=== PATIENT | female | born 1970 | race Caucasian/White ===

== ENCOUNTER 2019-10-16 14:39 | Outpatient (CLI) | payer OTHER, SELFPAY ==
--- NOTE | 2019-10-16 16:11 | ONC CON_ITS ---
Dr. Barrett New Patient Note Patient: Jennifer Serna Unit #: [id number]: [id number] Dicatated By: Maxim Barrett M.D.Date of Visit: Oct 16, 2019 Onc MED New Patient/Consult Referring Physician: Celeste Irene Chief Complaint: Anemia. History of Present Illness: This is a 48 year-old woman with iron deficiency anemia. She has Rio's thyroiditis, and she also has a history of polymyositis. She has been known to be anemic for at least a couple of years, reportedly due to iron deficiency. However, she had been unable to tolerate oral iron supplements or even a vitamin because they caused stomach problems. She has been seeing Shantelle Koenig for primary care. Her laboratory studies from 10/02/2019 included CBC showing hemoglobin 6.8 g with hematocrit 24.3%. The red cell indices were hypochromic/microcytic with MCV V 66 and MCH 18. The white blood cell count was 3600 and the platelet count was 287,000. Her serum iron studies showed an iron level less than 10 mcg/dL with transferrin saturation 1.1%. The ferritin was low at 3 ng/mL. She has been feeling tired and sluggish. She also gets short of breath with any activity. She is still able to work. Her ECOG score is 1. She has good appetite. She has has her weight has gradually increased. She has not had fever. She does have hot flashes and sweating. Her menstrual periods used to be heavy and clotty, but she did undergo an endometrial ablation about a year and a half ago. Following that procedure they have been less frequent, and they now just come and go. Her recent hormonal levels were in postmenopausal range. She currently has no GI symptoms. She has not been aware of any blood in the stool. She does have joint pain and stiffness, particularly in her hands. She also has been having pain in her right knee. She recently had started taking meloxicam again. She has chronic migraine headaches. She has some tingling in her fingers, which she thinks may be associated with topiramate. Past Medical History: Her medical history includes anxiety, chronic migraine, Rio's thyroiditis with hypothyroidism, and history of polymyositis. Past Surgical History: Her surgical/procedural history includes muscle biopsy of left thigh, hysteroscopy in 2016, hemorrhoidectomy in 2013, section in 2003, and appendectomy in 1982. Medications: ALPRAZolam 1 Tablet (of 0.5 mg) Oral b.i.d., Escitalopram Oxalate 1 Tablet (of 10 mg) Oral daily, Estradiol 1 Tablet (of 1 mg) Oral daily, Levothyroxine Sodium 1 Tablet (of 125 mcg) Oral daily, Nystatin 1 tsp (of 305940 Units/mL) Suspension Mouth/throat four times a day, Rizatriptan Benzoate 1 Tablet (of 10 mg) Tablet Dispersable Oral PRN, Topiramate (50 mg) Tablet Oral Take as Directed, traMADol HCl 1 Tablet (of 50 mg) Oral q 4 hours PRN, Venlafaxine HCl ER 1 Capsule (of 37.5 mg) Capsule SR 24 HR Oral daily, Ventolin HFA 1 - 2 Puff(s) (of 108 (90 base) mcg/act) Aerosol, solution Inhalation four times a day PRN Allergies: No Known Allergies. Social History: Ms. Serna is . She is employed as a [employer]. She is a non-smoker. She does not drink alcohol. Family History: Father of dementia at age 62. Mother with alcoholic cirrhosis at age 51. A sister has had to have iron infusions for anemia. Her paternal grandmother had breast cancer and a paternal uncle had myeloma. Review Of Symptoms: Constitutional - Her energy level has decreased over time. She feel very tired and snugglish. Her appetite is good and weight has gradually trending up these last few months. No fever, chills. She has hot flashes with sweating. ECOG score is 1, Eyes - She has had to start wearing glasses, ENMT - No sinus congestion/drainage. No mouth sores. No sore throat or difficulty swallowing. She has some decrease in her hearing, Endocrine - She has Rio's thyroiditis is and her thyroid function tends to fluctuate, Respiratory - She gets shortness of breath with acitivity. No cough. No pleuritic pain or hemoptysis, Cardiovascular - No angina pain. No palpitations, Gastrointestinal - No nausea or vomiting. No heartburn or acid reflux. No diarrhea or constipation. No blood in the stool or black stools, Genitourinary (F) - No dysuria or hematuria. She has urinary frequency with urgency. No incontinence. She is perimenopausal. Her periods are irregular and less frequent, Musculoskeletal - She is having joint pain and stiffness and back pain. She recently started taking meloxicam, Integumentary - No skin complications, Neurologic - She has migraine headaches. No dizziness. She has had some tingling in her fingers, Psychiatric - She has mild anxiety, for which she takes Xanax occasionally. No depression. She has insomnia. Vital Signs: Performed on Oct 16, 2019 14:49: 0, 30.57 (HIGH), 1.95 sq.m, 66.00 in, 100 %, 101 /min (HIGH), 18 /min, 156/81 mm(hg) (HIGH), 98.0 F (LOW), and 189.4 lbs (HIGH). Physical Examination: Constitutional - She appears to be in good general health, Eyes - Sclerae nonicteric. Conjunctivae clear, ENMT - No lesions noted in the oral cavity, Neck - No mass or thyromegaly, Hematologic/Lymphatic - No cervical, clavicular, or axillary adenopathy, Respiratory - Lungs are clear with good air movement bilaterally, Cardiovascular - Heart rhythm is regular. There is a II/ systolic murmur. There is no gallop or rub noted, Abdomen - Soft and non-tender. Liver and spleen are not enlarged. There is no abdominal mass or ascites noted and there is no inguinal adenopathy, Back/Spine - No spine or CVA tenderness noted, Extremities - No edema. Pedal pulses are palpable bilaterally, Integumentary - No rashes. No suspicious skin lesions noted, Neurologic - No focal neurologic deficits noted. Impression: 1. Patient with iron deficiency anemia. This is most likely due to combination of her previous menstrual blood loss together with some component of inadequate oral iron absorption. 2. She has been intolerant of oral iron preparations. Her other medical illnesses include: 3. Rio's thyroiditis with hypothyroidism. 4. She has a history of polymyositis. 5. She has joint pain and stiffness, which could be inflammatory. 6. Chronic migraine. 7. She has some stress related anxiety. Plan: As she is severely iron deficient and she has been intolerant of oral iron preparations, she will be given parenteral iron replacement with Injectafer, subject to verification of insurance coverage. She will be scheduled for 1-month interval lab studies. She will have further evaluation as indicated depending on her response to the parenteral iron. Signed By: Maxim Barrett M.D. <<Signature on File>>
== END 2019-10-16 14:40 | disposition home or self-care (01) ==
PROVIDERS: Family Provider Nurse Practitioner Family; Referring Provider Nurse Practitioner Family; Visit Provider Internal Medicine Medical Oncology
DX: D50.9 Iron deficiency anemia, unspecified (principal); E06.3 Autoimmune thyroiditis; F41.9 Anxiety disorder, unspecified; G43.709 Chronic migraine without aura, not intractable, without status migrainosus; M25.50 Pain in unspecified joint; Z79.899 Other long term (current) drug therapy; Z79.890 Hormone replacement therapy; Z79.891 Long term (current) use of opiate analgesic
CPT/HCPCS: 99205

== ENCOUNTER 2020-10-04 08:02 | Outpatient (CLI) | payer OTHER, SELFPAY ==
[2020-10-04 08:54] LABS: Basophils # 0.1 10^3/uL (0.0-0.1); Basophils % 1.1 %; Eosinophils # 0.1 10^3/uL (0.0-0.8); Eosinophils % 1.6 %; Hematocrit 24.7 % (37.0-47.0); Lymphocytes # 1.7 10^3/uL (0.8-4.8); Lymphocytes % 27.5 %; Mean Corpuscular HGB Conc 24.3 g/dL (30.0-36.0); Mean Corpuscular Hemoglobin 17.4 pg (28.0-34.0); Mean Corpuscular Volume 71.8 fL (81-99); Mean Platelet Volume 10.8 fL (7.4-10.4); Monocytes # 0.4 10^3/uL (0.2-0.9); Monocytes % 6.3 %; Neutrophils % 63.2 %; Nucleated Red Blood Cells % 0 %; Platelet Count 251 10^3/cmm (130-400); Red Blood Count 3.44 10^6/uL (4.1-5.3); Red Cell Distribution Width 20.6 % (12.1-15.1); White Blood Count 6.2 10^3/uL (4.0-10.0)
[2020-10-04] MEDS: sodium chloride 0.9% 250 ML 75 ML IV (11:20)
[2020-10-04] MEDS: diphenhydrAMINE 25 mg Capsule PO (11:20)
[2020-10-04] MEDS: acetaminophen 325 mg Tablet 650 MG PO (11:20)
[2020-10-04 12:30] VITALS: BP 138/73; PULSE 66; RESP 18; TEMP 37.1; O2SAT 100
[2020-10-04 12:45] VITALS: BP 119/66; PULSE 67; RESP 18; TEMP 37.2; O2SAT 100
--- NOTE | 2020-10-04 13:06 | ONC FU_ITS ---
Dr. Barrett Patient Follow-Up Note Patient: Jennifer Serna Unit #: [id number]: [id number] Dicatated By: Maxim Barrett M.D.Date of Visit:Oct 04, 2020 Onc Med Follow-up/Prog Note Chief Complaint: Anemia. History of Present Illness: This is a 49 year-old woman with iron deficiency anemia. I had seen her initially in October 2019. She had been known to be anemic for at least a couple of years, reportedly due to iron deficiency. However, she had been unable to tolerate oral iron supplements or even a vitamin because they caused stomach problems. She had been seeing Shantelle Koenig for primary care. Her laboratory studies from 10/02/2019 included CBC showing hemoglobin 6.8 g with hematocrit 24.3%. The red cell indices were hypochromic/microcytic with MCV V 66 and MCH 18. The white blood cell count was 3600 and the platelet count was 287,000. Her serum iron studies showed an iron level less than 10 mcg/dL with transferrin saturation 1.1%. The ferritin was low at 3 ng/mL. As she clearly had iron deficiency anemia and was intolerant of oral iron supplements, she was recommended to have parenteral iron replacement. After working with her insurance carrier, we were able to get her approved for an IV infusion of low molecular weight dextran. She was then unable to come in for her scheduled infusion because her [id number] had and she ended up never getting it rescheduled. Her medical history is otherwise significant for Rio's thyroiditis and a history of polymyositis. She also has chronic migraine and she has chronic anxiety. She is a non-smoker. INTERIM HISTORY: She had follow-up lab studies with Jyoti Koenig on 09/20/2020. Her CBC at that time showed hemoglobin 6.2 g with hematocrit 23.5%. The white blood cell count was 5800 and the platelet count was 224,000. The serum iron studies show transferrin saturation 4% and the ferritin was low at 1 ng/mL, again consistent with iron deficiency. She is seen for a follow-up visit. She has been feeling weak and tired. 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 Her ECOG score is 1. Appetite is somewhat variable. She has a craving for salty food. She has not had fever or night sweats. She does have some hot flashes. She is short of breath with activity. She also reports having palpitations, but she is not having chest pain. She has no GI or complaints. She says her menstrual periods have just about stopped now. She has joint pain, which she has managed adequately with meloxicam. She continues to have migraine headaches. She has no focal neurologic symptoms. Medications: ALPRAZolam 1 Tablet (of 0.5 mg) Oral b.i.d., Escitalopram Oxalate 1 Tablet (of 10 mg) Oral daily, Estradiol 1 Tablet (of 1 mg) Oral daily, Levothyroxine Sodium 1 Tablet (of 125 mcg) Oral daily, Nystatin 1 tsp (of 547456 Units/mL) Suspension Mouth/throat four times a day, Rizatriptan Benzoate 1 Tablet (of 10 mg) Tablet Dispersable Oral PRN, Topiramate (50 mg) Tablet Oral Take as Directed, traMADol HCl 1 Tablet (of 50 mg) Oral q 4 hours PRN, Venlafaxine HCl ER 1 Capsule (of 37.5 mg) Capsule SR 24 HR Oral daily, Ventolin HFA 1 - 2 Puff(s) (of 108 (90 base) mcg/act) Aerosol, solution Inhalation four times a day PRN Allergies: No Known Allergies. Vital Signs: Performed on Oct 04, 2020 10:00 Height - 65.5 in (LOW) Weight - 186.8 lbs (LOW) BSA - 1.93 sq.m BMI - 30.61 (HIGH) Temperature - 98.3 F (LOW) Pulse - 91 /min Respiration - 18 /min BP - 162/73 mm(hg) (HIGH) O2 Sat - 97 % Pain - 0 Physical Examination: Constitutional - She does not appear acutely ill, Eyes - Sclerae nonicteric. Conjunctivae clear, ENMT - No lesions noted in the oral cavity, Hematologic/Lymphatic - No cervical, clavicular, or axillary adenopathy, Respiratory - Lungs are clear with good air movement bilaterally, Cardiovascular - Heart rhythm is regular. There is a II/ systolic murmur. There is no gallop or rub noted, Abdomen - Soft. Liver and spleen are not enlarged. There is no abdominal mass or ascites noted and there is no inguinal adenopathy, Extremities - No edema, Neurologic - No focal neurologic deficits noted. Lab/Imaging: Test performed on Oct 04, 2020 08:27 WBC 6.2 10 3/uL RBC 3.44 10 6/uL HGB 6.0 g/dL HCT 24.7 % MCV 71.8 fL MCH 17.4 pg MCHC 24.3 g/dL RDW 20.6 % Platelet Count 251 10 3/cmm MPV 10.8 fL Neutrophils 3.90 10 3/uL Lymphocytes 1.7 10 3/uL Monocytes 0.4 10 3/uL Eosinophils 0.1 10 3/uL Basophils 0.1 10 3/uL Neutrophil % 63.2 % Lymphocyte % 27.5 % Monocyte % 6.3 % Eosinophil % 1.6 % Basophils % 1.1 % NRBC % 0 % Test performed on Sep 20, 2020 09:30 Ferritin 1 ng/mL T4 6.2 mcg/dL TSH 6.87 uU/mL % Iron Saturation 4 % Cholesterol, Total 137 mg/dL Glucose 94 mg/dL BUN 11 mg/dL HDL Cholesterol 36 mg/dL Iron, Total 18 mcg/dL Creatinine 0.69 mg/dL LDL Cholesterol 86 mg/dL TIBC 432 mcg/dL Cr Clearance (Est) 130.82 mL/min VLDL Cholesterol 101 mg/dL Triglycerides 65 mg/dL Sodium 138 mmol/L Potassium 4.3 mmol/L Chloride 109 mmol/L CO2 20 mmol/L Calcium 8.8 mg/dL Protein, Total 7.0 g/dL Albumin 4.4 g/dL Globulin 2.6 g/dL Bilirubin, Total 0.5 mg/dL Alkaline Phosphatase 68 IU/L AST (SGOT) 13 IU/L ALT (SGPT) 10 IU/L Hemoglobin A1C 4.8 % Sed Rate 17 mm/hr Problem List: 1. Iron deficiency anemia. 2. Rio's thyroiditis with hypothyroidism. 3. She has a history of polymyositis. 4. She has joint pain and stiffness, which may be inflammatory. 5. Chronic migraine. 6. Chronic anxiety. Problems Addressed with this Encounter and Plan: Patient with iron deficiency anemia. This appears to be due primarily to inadequate oral iron absorption. She has been intolerant of oral iron preparations. She has remained severely anemic for the entire past year, and she is significantly symptomatic. As such, she is being transfused 1 unit PRBC today. We are checking with her insurance carrier again to get approval for parenteral iron replacement, which is clearly indicated given her intolerance to oral iron supplements. I am assuming that she will be approved for low molecular weight iron dextran and (INFeD), which will be given as a single infusion. She will then be scheduled for 1-month interval follow-up lab studies with Jyoti Koenig. Signed By: Maxim Barrett M.D. <<Signature on File>>
[2020-10-04 13:29] VITALS: BP 134/71; PULSE 67; RESP 18; TEMP 36.9; O2SAT 100
[2020-10-04 13:35] VITALS: BP 134/71; PULSE 73; RESP 18; TEMP 37.2; O2SAT 100
[2020-10-04 14:00] VITALS: BP 138/79; PULSE 65; RESP 18; TEMP 37; O2SAT 100
== END 2020-10-04 08:03 | disposition home or self-care (01) ==
LOC: ONCMED 08:04
PROVIDERS: PCP Nurse Practitioner Family; Visit Provider Internal Medicine Medical Oncology
DX: D50.9 Iron deficiency anemia, unspecified (principal); E06.3 Autoimmune thyroiditis; Z87.39 Personal history of other diseases of the musculoskeletal system and connective tissue; F41.9 Anxiety disorder, unspecified; G43.709 Chronic migraine without aura, not intractable, without status migrainosus
CPT/HCPCS: 36430; 85025; 86850; 86900; 86920; 99214; J7050; P9016

== ENCOUNTER 2020-10-10 06:37 | Outpatient (CLI) | payer OTHER, SELFPAY ==
[2020-10-10] MEDS: sodium chloride 0.9% 250 ML IV (09:00)
[2020-10-10] MEDS: sodium chloride 0.9% (100 ml) 100 ML 200 ML (09:00)
[2020-10-10] MEDS: iron dextran 25 MG in SYRINGE 1 EACH 30 MG IVP (09:30)
[2020-10-10] MEDS: iron dextran 1,000 MG in sodium chloride 0.9% 1,000 ML 250 MG IV (10:45)
== END 2020-10-10 06:38 | disposition home or self-care (01) ==
PROVIDERS: PCP Nurse Practitioner Family; Visit Provider Internal Medicine Medical Oncology
DX: D50.9 Iron deficiency anemia, unspecified (principal)
CPT/HCPCS: 96365; 96366; 96367; J1750; J2930; J7030; J7050

== ENCOUNTER 2021-08-12 18:48 | Emergency (ER) | payer OTHER, SELFPAY ==
[2021-08-12 19:01] VITALS: BMI 28.6
[2021-08-12 19:08] VITALS: PULSE 98; RESP 18; TEMP 37; O2SAT 99
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
[2021-08-12 20:13] VITALS: RESP 22
[2021-08-12] MEDS: HYDROmorphone 1 mg/mL INJ 1 mL IVP (20:13)
--- NOTE | 2021-08-12 20:17 | PC.NURSE ---
Pts hand placed is a clean dry wrap with telfa padding at skin sites.
[2021-08-12 20:24] VITALS: BP 152/88; PULSE 114; RESP 18; O2SAT 98
== END 2021-08-12 20:36 | disposition short-term general hospital (02) ==
PROVIDERS: Emergency Provider Physician Assistant; PCP Nurse Practitioner Family
DX: T23.321A Burn of third degree of single right finger (nail) except thumb, initial encounter (principal); T23.241A Burn of second degree of multiple right fingers (nail), including thumb, initial encounter; X08.8XXA Exposure to other specified smoke, fire and flames, initial encounter
CPT/HCPCS: 96374; 99285; J1170

== ENCOUNTER 2025-05-09 10:10 | Outpatient (CLI) | payer OTHER, SELFPAY ==
--- NOTE | 2025-05-09 10:19 | XR_ITS ---
WS: [id number] KUB, AP view, 05/09/2025 Clinical Data: ACTUE LEFT FLANK PAIN,HEMATURIA Comparison: None. Findings: No abnormal intraabdominal masses or calcifications are seen. There is no dilatated small bowel or evidence of obstruction. There is fecal material throughout the colon. XR/XR KUB [id number] Impression: Fecal material in the colon.
== END 2025-05-09 10:11 | disposition home or self-care (01) ==
PROVIDERS: PCP Nurse Practitioner Family; Visit Provider Nurse Practitioner Family
DX: R10.9 Unspecified abdominal pain (principal); R31.9 Hematuria, unspecified; K56.41 Fecal impaction
CPT/HCPCS: 74018